=== PATIENT | male | born 2000 | race Hispanic/Latino ===

== ENCOUNTER 2021-11-11 15:31 | Emergency (ER) | payer SELFPAY ==
[2021-11-11] MEDS ORDERED: NA CHLORIDE 0.9% 1,000 ML ONE (15:53)
[2021-11-11] MEDS ORDERED: KETOROLAC 30 MG/ML INJ ONE (15:53)
[2021-11-11] MEDS ORDERED: ONDANSETRON 4 MG/2 ML VIAL ONE (15:53)
[2021-11-11 15:55] LABS: Absolute Lymphocytes (CBC) 2.5 K/uL (0.7-4.9); Lymphocytes % 35.9 % (15.3-44.8); MPV 8.6 fL (7.6-11.3); RBC Red Blood Cell Count 4.94 M/uL (4.33-5.43)
[2021-11-11 16:17] LABS: ALT/SGPT 43 U/L (12-78); AST/SGOT 29 U/L (15-37); Albumin 4.1 g/dL (3.4-5.0); Alkaline Phosphatase 101 U/L (45-117); BUN Blood Urea Nitrogen 17 mg/dL (7-18); Bicarbonate 25 mmol/L (21-32); Bilirubin Total 0.3 mg/dL (0.2-1.0); Glucose Level 98 mg/dL (74-106); Lipase 101 U/L (73-393); Potassium 3.6 mmol/L (3.5-5.1); Protein, Total 7.8 g/dL (6.4-8.2); Sodium Level 140 mmol/L (136-145)
--- NOTE | 2021-11-11 16:43 | RAD REPORT ---
EXAM DESCRIPTION: CT - Abdomen Pelvis W Contrast - 11/11/2021 4:21 pm CLINICAL HISTORY: Abdominal pain/right flank pain COMPARISON: none. TECHNIQUE: Computed axial tomography of the abdomen pelvis was obtained. 100 cc Isovue-300 was admin istered intravenously. Oral contrast was not requested which limits evaluation of bowel and appendix. All CT scans are performed using dose optimization technique as appropriate and may include automated exposure control or mA/KV adjustment according to patient size. FINDINGS: Mild right hydronephrosis. Right ureter is dilated. The evaluation of ureteral calculus is somewhat limited due the administration of IV contrast. A stone is not clearly seen. Bladder is dist ended. The liver, spleen, pancreas, left kidney and adrenals unremarkable There is no evidence of diverticulitis. Large amount stool within the colon IMPRESSION: Mild right hydronephrosis and right hydroureter. Bladder distention. Large amount stool within the colon
[2021-11-11] MEDS ORDERED: NA CHLORIDE 0.9% 50 ML ONE (16:59)
[2021-11-11] MEDS ORDERED: CEFTRIAXONE 1000 MG/VIAL ONE (16:59)
[2021-11-11] MEDS ORDERED: TAMSULOSIN 0.4 MG SR CAP ONE (16:59)
[2021-11-11 17:05] LABS: Urine Blood Negative (Negative); Urine Glucose Negative (Negative); Urine Protein Negative (Negative); Urine pH 6.5 (5.0-7.0)
[2021-11-11 17:18] LABS: Urine Bacteria <20 /HPF (NONE SEEN); Urine RBC <5 /HPF (NONE SEEN)
--- NOTE | 2021-11-11 17:40 | EDPHYS ---
Physician Documentation [facility] Name: Fortino Domínguez Age: 21 yrs Sex: Male : 2000 Arrival Date: 11/11/2021 Time: 15:34 Bed 8 Private MD: ED Physician Brock Og HPI: 11/11 15:45 This 21 yrs old Male presents to ER via Unassigned with complaints of Flank cp Pain. 15:45 The patient complains of pain in the right flank. The pain does not radiate. Onset: The cp symptoms/episode began/occurred 1.5 hour(s) ago. Associated signs and symptoms: The patient has no apparent associated signs or symptoms. 15:45 Patient reports pain to right flank and right abdomen started suddenly while at work cp today and after lifting heavy ladder. Historical: - Allergies: 15:48 No Known Allergies; ag7 - Home Meds: 15:48 None [Active]; ag7 - PMHx: 15:48 None; ag7 - PSHx: 15:48 left hand first digit; ag7 - Immunization history:: Client reports having NOT received the Covid vaccine. Flu vaccine is not up to date. Patient has never been vaccinated. - Social history:: Smoking status: Patient denies any tobacco usage or history of. ROS: 15:50 Constitutional: Negative for body aches, chills, fever, poor PO intake. cp 15:50 Eyes: Negative for injury, pain, redness, and discharge. cp 15:50 ENT: Negative for ear pain, sore throat, difficulty swallowing, difficulty handling secretions. 15:50 Cardiovascular: Negative for chest pain. 15:50 Respiratory: Negative for cough, shortness of breath, wheezing. 15:50 Abdomen/GI: Positive for abdominal pain. 15:50 Back: Positive for flank pain, on the right. cp 15:50 : Negative for urinary symptoms, testicular pain 15:50 Skin: Negative for rash. cp 15:50 Neuro: Negative for altered mental status, headache, numbness, weakness. 15:50 All other systems are negative. Exam: 15:55 Constitutional: The patient appears in no acute distress, alert, awake, non-toxic, well cp developed, well nourished. 15:55 Head/Face: Normocephalic, atraumatic. cp 15:55 Eyes: Periorbital structures: appear normal, Conjunctiva: normal, no exudate, no injection, Sclera: no appreciated abnormality, Lids and lashes: appear normal, bilaterally. 15:55 ENT: External ear(s): are unremarkable, Nose: is normal, Mouth: Lips: moist, Oral mucosa: moist, Posterior pharynx: Airway: no evidence of obstruction, patent. 15:55 Chest/axilla: Inspection: normal, Palpation: is normal, no crepitus, no tenderness. 15:55 Cardiovascular: Rate: normal, Rhythm: regular. 15:55 Respiratory: the patient does not display signs of respiratory distress, Respirations: normal, no use of accessory muscles, no retractions, labored breathing, is not present, Breath sounds: are clear throughout, no decreased breath sounds, no stridor, no wheezing. 15:55 Abdomen/GI: Inspection: abdomen appears normal, Bowel sounds: active, all quadrants, Palpation: mild abdominal tenderness, in the anterior aspect of right lateral abdomen and right lower quadrant, rebound tenderness, is not appreciated, voluntary guarding, is not appreciated, involuntary guarding, is not appreciated. 15:55 Back: CVA tenderness, is absent. 15:55 Skin: cellulitis, is not appreciated, no rash present. Vital Signs: 15:45 BP 119 / 73 LA Sitting (man/reg); Pulse 80 MON; Resp 16 S; Temp 99.1(TE); Pulse Ox 100% ag7 on R/A; Weight 54.43 kg (R); Pain 5/10; 16:00 BP 109 / 62; Pulse 63; Resp 16; Pulse Ox 99% on R/A; ww 17:05 BP 117 / 68; Pulse 76; Pulse Ox 100% on R/A; ap3 MDM: 15:45 Patient medically screened. cp 17:38 Data reviewed: vital signs, nurses notes, lab test result(s), radiologic studies, CT cp scan, and as a result, I will discharge patient. 17:38 Counseling: I had a detailed discussion with the patient and/or guardian regarding: the cp historical points, exam findings, and any diagnostic results supporting the discharge/admit diagnosis, lab results, radiology results. Response to treatment: the patient's symptoms have markedly improved after treatment, and as a result, I will discharge patient. 11/11 15:45 Order name: CBC with Diff; Complete Time: 16:48 cp 11/11 17:20 Interpretation: Reviewed. cp 11/11 15:45 Order name: CMP; Complete Time: 16:48 cp 11/11 16:49 Interpretation: Reviewed. cp 11/11 15:45 Order name: Lipase; Complete Time: 16:48 cp 11/11 15:45 Order name: Urine Microscopic Only; Complete Time: 17:19 cp 11/11 16:51 Order name: Urine Culture cp 11/11 17:05 Order name: Urine Dipstick-Ancillary; Complete Time: 17:10 EDMS 11/11 17:10 Interpretation: Reviewed. 11/11 15:45 Order name: CT Abd/Pelvis - IV Contrast Only; Complete Time: 16:48 11/11 16:49 Interpretation: Report reviewed. 11/11 15:45 Order name: IV Saline Lock; Complete Time: 15:52 11/11 17:12 Order name: CREATININE WHOLE BLOOD; Complete Time: 17:19 EDMS 11/11 15:45 Order name: Labs collected and sent; Complete Time: 15:52 cp 11/11 15:45 Order name: Urine Dipstick-Ancillary (obtain specimen); Complete Time: 17:05 11/11 16:51 Order name: Urine Strainer; Complete Time: 16:58 cp Administered Medications: 15:48 Drug: NS 0.9% 1000 ml Route: IV; Rate: 1 bolus; Site: right antecubital; ap3 15:48 Drug: Zofran (Ondansetron) 4 mg Route: IVP; Site: right antecubital; ap3 15:48 Drug: Ketorolac 15 mg Route: IVP; Site: right antecubital; ap3 17:04 Drug: Rocephin - (cefTRIAXone) 1 grams Route: IVPB; Infused Over: 30 mins; Site: right ww antecubital; 17:05 Drug: Flomax (tamsulosin) 0.4 mg Route: PO; ww Disposition: 20:52 Co-signature as Attending Physician, Brock Og DO I was present in the ED for ms3 consultation. Disposition Summary: 11/11/21 17:39 Discharge Ordered Location: Home cp Problem: new cp Symptoms: have improved cp Condition: Stable cp Diagnosis - Other hydronephrosis cp - Other abdominal pain cp Followup: cp - With: Gumaro Sherman MD - When: 2 - 3 days - Reason: Recheck today's complaints Discharge Instructions: - Discharge Summary Sheet cp - Abdominal Pain, Adult cp - Hydronephrosis cp Forms: - Medication Reconciliation Form cp - Thank You Letter cp - Antibiotic Education cp - Prescription Opioid Use cp Prescriptions: - Flomax 0.4 mg Oral capsule - take 1 capsule by ORAL route once daily 1/2 hour following the same meal each cp day; 7 capsule; Refills: 0, Product Selection Permitted - Zofran 4 mg Oral Tablet - take 1 tablet by ORAL route every 12 hours As needed; 20 tablet; Refills: 0, cp Product Selection Permitted - Diclofenac Sodium 75 mg Oral tablet,delayed release (DR/EC) - take 1 tablet by ORAL route 2 times per day; 20 tablet; Refills: 0, Product cp Selection Permitted Signatures: Dispatcher [employer] EDMS London Brown PA PA cp Prokisch, Amanda, RN RN ap3 Brock Og DO DO ms3 Corinna Borjas RN RN ww Luz Means RN RN ag7
--- NOTE | 2021-11-11 17:40 | ER ---
Nurse's Notes [facility] Name: Fortino Domínguez Age: 21 yrs Sex: Male : 2000 Arrival Date: 11/11/2021 Time: 15:34 Bed 8 Private MD: Diagnosis: Other hydronephrosis;Other abdominal pain Presentation: 11/11 15:45 Chief complaint: Patient states: Patient significant other, "patient lift a very heavy ag7 ladder and started having pain to the right side". Coronavirus screen: Client denies travel out of the [place] in the last 14 days. At this time, the client does not indicate any symptoms associated with coronavirus-19. Ebola Screen: No symptoms or risks identified at this time. Initial Sepsis Screen: Does the patient meet any 2 criteria? No. Patient's initial sepsis screen is negative. Does the patient have a suspected source of infection? No. Patient's initial sepsis screen is negative. Risk Assessment: Do you want to hurt yourself or someone else? Patient reports no desire to harm self or others. Onset of symptoms was November 11, 2021 at 14:15. 15:45 Method Of Arrival: Ambulatory ag7 15:45 Acuity: MAK 4 ag7 Historical: - Allergies: 15:48 No Known Allergies; ag7 - Home Meds: 15:48 None [Active]; ag7 - PMHx: 15:48 None; ag7 - PSHx: 15:48 left hand first digit; ag7 - Immunization history:: Client reports having NOT received the Covid vaccine. Flu vaccine is not up to date. Patient has never been vaccinated. - Social history:: Smoking status: Patient denies any tobacco usage or history of. Screenin:46 Abuse screen: Denies threats or abuse. Nutritional screening: No deficits noted. ap3 Tuberculosis screening: No symptoms or risk factors identified. Fall Risk None identified. No fall in past 12 months (0 pts). Assessment: 15:45 General: Appears in no apparent distress. Behavior is calm, cooperative. Pain: ap3 Complains of pain in right upper quadrant Pain began 1.5 hours ago. Neuro: Level of Consciousness is awake, alert, obeys commands, Oriented to person, place, time, situation, Appropriate for age Gait is steady, Speech is normal. Cardiovascular: Patient's skin is warm and dry. Respiratory: Airway is patent Respiratory effort is even, unlabored, Respiratory pattern is regular, symmetrical. GI: Reports lower abdominal pain, upper abdominal pain. 16:35 Reassessment: Patient appears in no apparent distress at this time. No changes from ww previously documented assessment. Patient and/or family updated on plan of care and expected duration. Pain level reassessed. Patient is alert, oriented x 3, equal unlabored respirations, skin warm/dry/pink. 17:07 Reassessment: Patient appears in no apparent distress at this time. No changes from ww previously documented assessment. Patient and/or family updated on plan of care and expected duration. Pain level reassessed. Patient is alert, oriented x 3, equal unlabored respirations, skin warm/dry/pink. 17:50 Reassessment: Patient is alert, oriented x 3, equal unlabored respirations, skin aa5 warm/dry/pink. Vital Signs: 15:45 BP 119 / 73 LA Sitting (man/reg); Pulse 80 MON; Resp 16 S; Temp 99.1(TE); Pulse Ox 100% ag7 on R/A; Weight 54.43 kg (R); Pain 5/10; 16:00 BP 109 / 62; Pulse 63; Resp 16; Pulse Ox 99% on R/A; ww 17:05 BP 117 / 68; Pulse 76; Pulse Ox 100% on R/A; ap3 ED Course: 15:34 Patient arrived in ED. mr 15:35 Kurtis Santos PA is PHCP. jr8 15:35 Brock Og DO is Attending Physician. jr8 15:38 PHCP role handed off by Kurtis Santos PA cp 15:38 London Brown PA is PHCP. cp 15:45 Vale Flores, TYLER is Primary Nurse. ap3 15:46 Pt visited by . ap3 15:47 Patient has correct armband on for positive identification. Bed in low position. Call ap3 light in reach. Side rails up X 1. Adult w/ patient. Pulse ox on. NIBP on. Door closed. Noise minimized. 15:48 Triage completed. ag7 15:52 Inserted saline lock: 20 gauge in right antecubital area, using aseptic technique. ww Blood collected. 16:20 CT Abd/Pelvis - IV Contrast Only In Process Unspecified. EDOR 17:05 Urine Culture Sent. [facility] 17:05 Urine Microscopic Only Sent. [facility] 17:05 Urine collected: clean catch specimen, cloudy. [facility] 17:38 Gumaro Sherman MD is Referral Physician. cp 17:50 No provider procedures requiring assistance completed. IV discontinued, intact, aa5 bleeding controlled, No redness/swelling at site. Pressure dressing applied. Administered Medications: 15:48 Drug: NS 0.9% 1000 ml Route: IV; Rate: 1 bolus; Site: right antecubital; ap3 15:48 Drug: Zofran (Ondansetron) 4 mg Route: IVP; Site: right antecubital; ap3 15:48 Drug: Ketorolac 15 mg Route: IVP; Site: right antecubital; ap3 17:04 Drug: Rocephin - (cefTRIAXone) 1 grams Route: IVPB; Infused Over: 30 mins; Site: right ww antecubital; 17:05 Drug: Flomax (tamsulosin) 0.4 mg Route: PO; Outcome: 17:39 Discharge ordered by MD. cp 17:50 Discharged to home ambulatory, with family. aa5 17:50 Condition: stable 17:50 Discharge instructions given to patient, Instructed on discharge instructions, follow up and referral plans. medication usage, Demonstrated understanding of instructions, follow-up care, medications, Prescriptions given X 3. 17:51 Patient left the ED. aa5 Signatures: Dispatcher [employer] EDOR Cyndy WillsJazmin RN RN aa5 Kurtis Santos PA PA jr8 Page, Corey, PA PA cp Martinez, Maria [facility] Vale Flores RN RN ap3 Corinna Borjas, TYLER RN ww Luz Means RN RN ag7
[2021-11-11 17:57] VITALS: TEMP 99.1
[2021-11-11 17:59] VITALS: BP 117/68; O2SAT 100
== END 2021-11-11 17:51 | disposition home or self-care (01) ==
LOC: ER 15:31
DX: R10.9 Unspecified abdominal pain (principal); N13.30 Unspecified hydronephrosis
CPT/HCPCS: 36415; 74177; 80053; 81003; 81015; 82565; 83690; 85025; 87086; 87088; 96374; 96375; 99284; J2405; J7030; Q9967

== ENCOUNTER 2024-03-01 09:46 | Emergency (ER) | payer SELFPAY ==
[2024-03-01] MEDS ORDERED: IBUPROFEN 400 MG TAB ONE (12:23)
[2024-03-01] MEDS ORDERED: CEFTRIAXONE 1000 MG/VIAL ONE (12:23)
[2024-03-01] MEDS ORDERED: IBUPROFEN 200 MG TAB PO ONE (12:23)
[2024-03-01] MEDS ORDERED: AMOX/K CLAV 875 MG TAB ONE (12:23)
[2024-03-01] MEDS ORDERED: LIDOCAINE 1% MPF 2 ML AMPULE ONE (12:24)
--- NOTE | 2024-03-01 12:26 | ER ---
Nurse's Notes [facility] Name: Fortino Domínguez Age: 23 yrs Sex: Male : 2000 Arrival Date: 03/01/2024 Time: 09:46 Bed 8 Private MD: Diagnosis: Acute serous otitis media, right ear;Diffuse otitis externa, right ear Presentation: 03/01 10:06 Chief complaint: Patient states: Cough, congestion, sore throat, body aches, RAMIREZ for 3 ld1 days. B ear pains, worse on R with decreased hearing. Coronavirus screen: congestion, cough unrelated to allergies, fatigue, fever, headache, sore throat, Client presents with at least one sign or symptom that may indicate coronavirus-19. Standard/surgical mask placed on the client. Ebola Screen: Patient denies travel to an Ebola-affected area in the 21 days before illness onset. Initial Sepsis Screen: Does the patient meet any 2 criteria? No. Patient's initial sepsis screen is negative. Does the patient have a suspected source of infection? No. Patient's initial sepsis screen is negative. Risk Assessment: Do you want to hurt yourself or someone else? Patient reports no desire to harm self or others. Onset of symptoms was February 28, 2024. 10:06 Method Of Arrival: Ambulatory ld1 10:06 Acuity: MAK 4 ld1 Triage Assessment: 10:05 General: Appears in no apparent distress. Behavior is calm, cooperative, appropriate ll1 for age. General: Reports fever for feeling ill for fatigue for. Pain: Complains of pain in right ear and left ear Pain currently is 10 out of 10 on a pain scale. EENT: Reports decreased hearing in right ear pain in right ear and left ear. EENT: Reports nasal congestion. Neuro: Reports headache. Respiratory: Reports cough that is. Historical: - Allergies: 10:06 No Known Allergies; ld1 - PMHx: 10:06 None; ld1 - PSHx: 09:54 left hand first digit; ll1 10:06 L arm SX; ld1 - Immunization history:: Adult Immunizations up to date. - Infectious Disease History:: Denies. - Social history:: Smoking status: Patient denies any tobacco usage or history of. Screenin:21 [facility] ED Fall Risk Assessment (Adult) History of falling in the last 3 months, ld1 including since admission No falls in past 3 months (0 pts) Confusion or Disorientation No (0 pts) Intoxicated or Sedated No (0 pts) Impaired Gait No (0 pts) Mobility Assist Device Used No (0 pt) Altered Elimination No (0 pt) Score/Fall Risk Level 0 - 2 = Low Risk Oriented to surroundings, Maintained a safe environment, Educated pt \T\ family on fall prevention, incl call for assistance when getting out of bed, Assessed \T\ reinforced patient's understanding of fall precautions, Provided non-skid footwear, Hourly rounding (assess needs \T\ fall precautionary measures) done, Used ambulatory aids as needed (educated on \T\ assisted with), Used gait belt as appropriate. Abuse screen: Denies threats or abuse. Denies injuries from another. Nutritional screening: No deficits noted. Nutritional screening: No deficits noted. Tuberculosis screening: No symptoms or risk factors identified. Assessment: 10:21 General: Appears in no apparent distress. comfortable, Behavior is calm, cooperative, ld1 appropriate for age. Pain: Denies pain. Neuro: Level of Consciousness is awake, alert, obeys commands, Oriented to person, place, time, situation. Cardiovascular: Capillary refill < 3 seconds Patient's skin is warm and dry. Respiratory: Airway is patent Respiratory effort is even, unlabored. GI: Abdomen is flat, non-distended. : No signs and/or symptoms were reported regarding the genitourinary system. EENT: Reports pain in left ear and right ear. Derm: No signs and/or symptoms reported regarding the dermatologic system. Musculoskeletal: No signs and/or symptoms reported regarding the musculoskeletal system. 12:27 General: Pending discharge due to being on shot time.. cm10 12:38 Reassessment: Patient appears in no apparent distress at this time. No changes from cm10 previously documented assessment. Patient and/or family updated on plan of care and expected duration. Pain level reassessed. Patient is alert, oriented x 3, equal unlabored respirations, skin warm/dry/pink. Patient states feeling better. Patient states symptoms have improved. General: Appears in no apparent distress. comfortable, Behavior is calm, cooperative, appropriate for age. Neuro: No deficits noted. Level of Consciousness is awake, alert, obeys commands, Oriented to person, place, time, situation. Respiratory: No deficits noted. Airway is patent Respiratory effort is even, unlabored, Respiratory pattern is regular, symmetrical. Vital Signs: 10:06 BP 130 / 72; Pulse 65; Resp 16; Temp 97.2; Pulse Ox 97% ; Weight 54.43 kg; Pain 10/10; ld1 10:06 Pain Scale: Adult ld1 ED Course: 09:50 Patient arrived in ED. ra3 09:50 London Alvarez MD is Attending Physician. [facility] 09:54 Arm band placed on Patient placed in an exam room, on a stretcher. ll1 10:08 Triage completed. ld1 10:20 Vikki Og, RN is Primary Nurse. ld1 10:21 Patient has correct armband on for positive identification. Bed in low position. Call ld1 light in reach. Side rails up X2. Pulse ox on. NIBP on. Door closed. Noise minimized. 10:21 No provider procedures requiring assistance completed. ld1 12:25 Lilliana Bar MD is Referral Physician. [facility] 12:43 Provided Education on: Follow-up instructions. cm10 12:43 Patient did not have IV access during this emergency room visit. cm10 Administered Medications: 12:33 Drug: Rocephin (cefTRIAXone) IM 1 grams IM once Route: IM; Site: right vastus lateralis;cm10 12:48 Follow up: Response: No adverse reaction cm10 12:33 Drug: Amoxicillin-Clavulanate PO 875 mg PO once Route: PO; cm10 12:47 Follow up: Response: No adverse reaction cm10 12:33 Drug: Ibuprofen PO 600 mg PO once Route: PO; cm10 12:47 Follow up: Response: No adverse reaction cm10 Medication: 12:43 VIS not applicable for this client. cm10 Outcome: 12:26 Discharge ordered by . [facility] 12:39 Discharged to home ambulatory, cm10 12:39 Condition: good 12:39 Discharge instructions given to patient, Instructed on discharge instructions, follow up and referral plans. medication usage, Demonstrated understanding of instructions, follow-up care, medications, Prescriptions given X 2, 12:47 Patient left the ED. cm10 Signatures: London Alvarez MD MD cha Lewis, Lynsay, RN RN 1 Vikki Og RN RN 1 Marcela Mckeon RN RN cm10 Murry, Jinny ra3
--- NOTE | 2024-03-01 12:26 | EDPHYS ---
Physician Documentation [facility] Name: Fortino Domínguez Age: 23 yrs Sex: Male : 2000 Arrival Date: 03/01/2024 Time: 09:46 Bed 8 Private MD: ED Physician London Alvarez HPI: 03/01 12:21 This 23 yrs old Male presents to ER via Ambulatory with complaints of Ear Pain.kimo 12:21 The patient presents with pain, tenderness. The complaints affect the right ear. Onset: kimo The symptoms/episode began/occurred 2 day(s) ago. Modifying factors: The symptoms are alleviated by nothing, covering ear, the symptoms are aggravated by pulling on ears, touching. Associated signs and symptoms: The patient has no apparent associated signs or symptoms. The patient has not experienced similar symptoms in the past. Historical: - Allergies: 10:06 No Known Allergies; ld1 - PMHx: 10:06 None; ld1 - PSHx: 09:54 left hand first digit; ll1 10:06 L arm SX; ld1 - Immunization history:: Adult Immunizations up to date. - Infectious Disease History:: Denies. - Social history:: Smoking status: Patient denies any tobacco usage or history of. ROS: 12:22 Constitutional: Negative for fever, chills, and weight loss, Eyes: Negative for injury, kimo pain, redness, and discharge, Neck: Negative for injury, pain, and swelling, Cardiovascular: Negative for chest pain, palpitations, and edema, Respiratory: Negative for shortness of breath, cough, wheezing, and pleuritic chest pain, Abdomen/GI: Negative for abdominal pain, nausea, vomiting, diarrhea, and constipation, Back: Negative for injury and pain, : Negative for injury, bleeding, discharge, and swelling, MS/Extremity: Negative for injury and deformity, Skin: Negative for injury, rash, and discoloration, Neuro: Negative for headache, weakness, numbness, tingling, and seizure, Psych: Negative for depression, anxiety, suicide ideation, homicidal ideation, and hallucinations, Allergy/Immunology: Negative for hives, rash, and allergies, Endocrine: Negative for neck swelling, polydipsia, polyuria, polyphagia, and marked weight changes, Hematologic/Lymphatic: Negative for swollen nodes, abnormal bleeding, and unusual bruising, 12:22 ENT: Positive for drainage from ear(s), ear pain, hearing loss, Exam: 12:22 Constitutional: This is a well developed, well nourished patient who is awake, alert, kimo and in no acute distress. Head/Face: Normocephalic, atraumatic. Eyes: Pupils equal round and reactive to light, extra-ocular motions intact. Lids and lashes normal. Conjunctiva and sclera are non-icteric and not injected. Cornea within normal limits. Periorbital areas with no swelling, redness, or edema. Neck: Trachea midline, no thyromegaly or masses palpated, and no cervical lymphadenopathy. Supple, full range of motion without nuchal rigidity, or vertebral point tenderness. No Meningismus. Chest/axilla: Normal chest wall appearance and motion. Nontender with no deformity. No lesions are appreciated. Cardiovascular: Regular rate and rhythm with a normal S1 and S2. No gallops, murmurs, or rubs. Normal PMI, no JVD. No pulse deficits. Respiratory: Lungs have equal breath sounds bilaterally, clear to auscultation and percussion. No rales, rhonchi or wheezes noted. No increased work of breathing, no retractions or nasal flaring. Abdomen/GI: Soft, non-tender, with normal bowel sounds. No distension or tympany. No guarding or rebound. No evidence of tenderness throughout. Back: No spinal tenderness. No costovertebral tenderness. Full range of motion. Male : Normal genitalia with no discharge or lesions. Skin: Warm, dry with normal turgor. Normal color with no rashes, no lesions, and no evidence of cellulitis. MS/ Extremity: Pulses equal, no cyanosis. Neurovascular intact. Full, normal range of motion. Neuro: Awake and alert, GCS 15, oriented to person, place, time, and situation. Cranial nerves II-XII grossly intact. Motor strength 5/5 in all extremities. Sensory grossly intact. Cerebellar exam normal. Normal gait. Psych: Awake, alert, with orientation to person, place and time. Behavior, mood, and affect are within normal limits. 12:22 ENT: External ear(s): are unremarkable, no acute changes, Ear canal(s): bloody discharge, cerumen impaction, erythema, that is moderate, of the right canal, swelling, that is minimal, of the right canal, TM's: dullness, on the right, erythema, Vital Signs: 10:06 BP 130 / 72; Pulse 65; Resp 16; Temp 97.2; Pulse Ox 97% ; Weight 54.43 kg; Pain 10/10; ld1 10:06 Pain Scale: Adult ld1 Procedures: 12:24 Performed right ear irrigated , large cerunen removed, clear , oe diffuse moderate. kimo MDM: 09:50 Patient medically screened. kimo 12:23 Differential diagnosis: otitis media, otitis externa, cerumen impaction. Data reviewed: [facility] vital signs, nurses notes. Consideration of Admission/Observation Escalation of care including admission/observation considered. I considered the following discharge prescriptions or medication management in the emergency department Medications were administered in the Emergency Department. See MAR. Historians other than the Patient: pt well informed. 03/01 10:42 Order name: Misc. Order: h20/h2o2 irrigate; Complete Time: 11:05 kimo Administered Medications: 12:33 Drug: Rocephin (cefTRIAXone) IM 1 grams IM once Route: IM; Site: right vastus lateralis;cm10 12:48 Follow up: Response: No adverse reaction cm10 12:33 Drug: Amoxicillin-Clavulanate PO 875 mg PO once Route: PO; cm10 12:47 Follow up: Response: No adverse reaction cm10 12:33 Drug: Ibuprofen PO 600 mg PO once Route: PO; cm10 12:47 Follow up: Response: No adverse reaction cm10 Disposition Summary: 03/01/24 12:26 Discharge Ordered Notes: Location: Home kimo Problem: new kimo Symptoms: have improved kimo Condition: Stable kimo Diagnosis - Acute serous otitis media, right ear kimo - Diffuse otitis externa, right ear kimo Followup: kimo - With: Private Physician - When: 2 - 3 days - Reason: Recheck today's complaints, Continuance of care, Re-evaluation by your physician Followup: kimo - With: Lilliana Bar MD - When: 2 - 3 days - Reason: Recheck today's complaints, Re-evaluation by your physician Discharge Instructions: - Discharge Summary Sheet kimo - Ear Drops, Adult kimo - Otitis Media, Adult kimo - Otitis Externa kimo - Otitis Externa, [id number] kimo - Otitis Media, Adult, [id number] kimo Forms: - Medication Reconciliation Form kimo - Antibiotic Education kimo - Prescription Opioid Use kimo - Patient Portal Instructions [facility] - Leadership Thank You Letter [facility] Prescriptions: - Augmentin 875-125 mg Oral tablet - take 1 tablet ORAL route every 12 hours for 7 days; 14 tablet; Refills: 0, [facility] Product Selection Permitted - Ciprodex 0.3-0.1 % Otic drops, suspension - instill 4 drops OTIC route every 12 hours for 7 days , for ears ONLY; 3.5 [facility] milliliter; Refills: 0, Product Selection Permitted Signatures: London Alvarez MD MD cha Lewis, Lynsay RN RN ll1 Vikki Og RN RN ld1 Marcela Mckeon RN RN cm10
[2024-03-01 13:06] VITALS: BP 130/72; TEMP 97.2; O2SAT 97
== END 2024-03-01 12:47 | disposition home or self-care (01) ==
LOC: ER 09:46
PROC: 3E1B78Z Irrigation of Ear using Irrigating Substance, Via Natural or Artificial Opening (ICD-10-PCS; principal; 2024-03-01)
DX: H65.01 Acute serous otitis media, right ear (principal); H60.311 Diffuse otitis externa, right ear
CPT/HCPCS: 96372; 99284; J0696